=== PATIENT | male | born 1955 | race African-American/Black ===

== ENCOUNTER 2021-02-14 13:40 | Emergency (ER) | payer OTHER, BC, MEDICAID ==
[~2021-02-14] VITALS: Ht 167.6 cm; Wt 72.6 kg
[2021-02-14 13:40] VITALS: BP_SYST 144
[2021-02-14] MEDS ORDERED: METH-634 PO ×2 (14:46→14:49)
[2021-02-14 14:54] VITALS: BP_SYST 144
== END 2021-02-14 14:54 | disposition home or self-care (01) ==
LOC: SED 13:40
DX: G44.209 Tension-type headache, unspecified, not intractable (principal); I10 Essential (primary) hypertension; Z79.899 Other long term (current) drug therapy
CPT/HCPCS: 99283